=== PATIENT | female | born 1990 | race Caucasian/White ===

== ENCOUNTER 2016-12-15 10:55 | Outpatient (CLI) | payer BC, OTHER ==
[2016-12-15 11:35] LABS: HEMOGLOBIN 9.8 gm/dl (12.3-15.3); RED BLOOD COUNT 3.6 M/UL (4.00-5.10); WHITE BLOOD COUNT 11.3 K/UL (4.5-11.0)
[2016-12-15 11:47] LABS: URINE TOTAL PROTEIN 13 mg/dl
[2016-12-15 11:51] LABS: BUN/CREATININE RATIO 8 (0-10)
== END 2016-12-15 12:33 | disposition home or self-care (01) ==
LOC: GENOP 10:55
PROVIDERS: Obstetrics & Gynecology
DX: O13.3 Gestational [pregnancy-induced] hypertension without significant proteinuria, third trimester (principal); Z3A.36 36 weeks gestation of pregnancy
CPT/HCPCS: 36415; 59025; 80053; 84156; 85025

== ENCOUNTER 2016-12-22 20:49 | Outpatient (CLI) | payer BC, OTHER | END 2016-12-23 01:17 | disposition home or self-care (01) | LOC: GENOP 20:49 | DX: O99.89 Other specified diseases and conditions complicating pregnancy, childbirth and the puerperium (principal); R10.9 Unspecified abdominal pain; M54.9 Dorsalgia, unspecified; Z3A.36 36 weeks gestation of pregnancy | CPT/HCPCS: 81001; G0463 ==

== ENCOUNTER 2016-12-25 17:33 | Inpatient (IN) | payer BC, OTHER ==
[~2016-12-25] VITALS: Ht 165.1 cm; Wt 81.6 kg
[2016-12-25 18:30] LABS: HEMOGLOBIN 9.6 gm/dl (12.3-15.3); RED BLOOD COUNT 3.57 M/UL (4.00-5.10); WHITE BLOOD COUNT 10.9 K/UL (4.5-11.0)
[2016-12-27 02:52] LABS: HEMOGLOBIN 8.8 gm/dl (12.3-15.3)
[2016-12-28] MEDS ORDERED: COLACE 100MG C100 MG PO (11:31)
== END 2016-12-28 09:30 | disposition home or self-care (01) | DRG 775 ==
LOC: GENOP 17:33 → OB 17:58
PROVIDERS: Obstetrics & Gynecology; ADMIT Obstetrics & Gynecology
PROC: 10E0XZZ Delivery of Products of Conception, External Approach (ICD-10-PCS; principal; 2016-12-26)
PROC: 10907ZC Drainage of Amniotic Fluid, Therapeutic from Products of Conception, Via Natural or Artificial Opening (ICD-10-PCS; 2016-12-26)
PROC: 3E0234Z Introduction of Serum, Toxoid and Vaccine into Muscle, Percutaneous Approach (ICD-10-PCS; 2016-12-28)
DX: O13.3 Gestational [pregnancy-induced] hypertension without significant proteinuria, third trimester (principal); Z3A.38 38 weeks gestation of pregnancy; Z37.0 Single live birth; Z23 Encounter for immunization; O62.2 Other uterine inertia; O99.013 Anemia complicating pregnancy, third trimester
CPT/HCPCS: 36415; 51702; 81001; 82800; 82962; 85014; 85018; 85025; 90715; J2405; J2550; J2590; J2795; J3010; J3430; J7120